=== PATIENT | female | born 1980 | race Caucasian/White ===

== ENCOUNTER 2020-12-18 18:26 | Emergency (ER) | payer OTHER ==
[~2020-12-18 18:26] MED LIST: MORPHINE SULFAT15 M1 PO; OMEPRAZOLE40 MG PO; ZOFRAN4 MG PO
== END 2020-12-18 21:46 | disposition left against medical advice (07) ==
LOC: ER1 18:26
DX: R10.10 Upper abdominal pain, unspecified (principal); Z53.21 Procedure and treatment not carried out due to patient leaving prior to being seen by health care provider

== ENCOUNTER 2021-01-07 07:02 | Emergency (ER) | payer OTHER ==
[2021-01-07 08:34] LABS: HEMOGLOBIN 14.6 gm/dl (12.3-15.3); RED BLOOD COUNT 4.77 M/UL (4.00-5.10); WHITE BLOOD COUNT 9.1 K/UL (4.5-11.0)
[2021-01-07 09:19] LABS: BUN/CREATININE RATIO 19 (0-10)
[2021-01-07] MEDS ORDERED: PROTONIX40 MG PO (10:34)
[2021-01-07] MEDS ORDERED: ZOFRAN4 MG PO (10:34)
== END 2021-01-07 11:23 | disposition home or self-care (01) ==
LOC: ER1 07:02
PROVIDERS: Physician Assistant
DX: R10.13 Epigastric pain (principal); R11.2 Nausea with vomiting, unspecified; I10 Essential (primary) hypertension; F17.210 Nicotine dependence, cigarettes, uncomplicated; Z88.0 Allergy status to penicillin; Z79.899 Other long term (current) drug therapy
CPT/HCPCS: 80053; 81001; 83690; 84703; 85025; 96374; 96375; 99284; C9113; J2405; J7030; Q9967

== ENCOUNTER 2021-06-20 23:11 | Emergency (ER) | payer SELFPAY ==
[~2021-06-20 23:11] MED LIST changes: +PROTONIX40 MG PO
[2021-06-21 00:20] LABS: HEMOGLOBIN 14.5 gm/dl (12.3-15.3); RED BLOOD COUNT 4.7 M/UL (4.00-5.10); WHITE BLOOD COUNT 11.5 K/UL (4.5-11.0)
[2021-06-21 00:42] LABS: BUN/CREATININE RATIO 30 (0-10)
[2021-06-21] MEDS ORDERED: ZOFRAN ODT 4 MG4 MG PO (01:19)
[2021-06-22] MEDS ORDERED: ZOFRAN4 MG PO ×2 (17:43→17:46)
[2021-06-22] MEDS ORDERED: MIRALAX 119 GR119 GM PO ×2 (17:46→21:01)
[2021-06-22] MEDS ORDERED: CARAFATE 1 GM TA1 GM PO (20:57)
[2021-06-22] MEDS ORDERED: ONDANSETRON ODT4 MG SL (21:01)
== END 2021-06-21 01:23 | disposition home or self-care (01) ==
LOC: ER1 23:11
PROVIDERS: Family Medicine
DX: E87.6 Hypokalemia (principal); R10.13 Epigastric pain; R11.2 Nausea with vomiting, unspecified; F17.200 Nicotine dependence, unspecified, uncomplicated; Z88.0 Allergy status to penicillin; Z79.899 Other long term (current) drug therapy
CPT/HCPCS: 80053; 83690; 83735; 85025; 96374; 96375; 99284; C9113; J2405; J7030

== ENCOUNTER 2021-06-24 16:28 | Emergency (ER) | payer OTHER ==
[~2021-06-24 16:28] MED LIST changes: +CARAFATE 1 GM TA1 GM PO; +MIRALAX 119 GR119 GM PO; +ONDANSETRON ODT4 MG SL; +ZOFRAN ODT 4 MG4 MG PO
== END 2021-06-24 19:15 | disposition left against medical advice (07) ==
LOC: ER1 16:28
DX: Z53.21 Procedure and treatment not carried out due to patient leaving prior to being seen by health care provider (principal)

== ENCOUNTER 2022-01-04 07:18 | Emergency (ER) | payer OTHER ==
[2022-01-04 08:18] LABS: HEMOGLOBIN 12.5 gm/dl (12.3-15.3); RED BLOOD COUNT 4.1 M/UL (4.00-5.10); WHITE BLOOD COUNT 5.9 K/UL (4.5-11.0)
[2022-01-04 08:40] LABS: BUN/CREATININE RATIO 29 (0-10)
[2022-01-04] MEDS ORDERED: ZOFRAN ODT 4 MG4 MG SL (10:16)
[2022-01-04] MEDS ORDERED: CARAFATE1 GM PO (10:16)
[2022-01-04] MEDS ORDERED: HYDROCODON-ACE1 EAC4 PO (10:16)
== END 2022-01-04 10:30 | disposition home or self-care (01) ==
LOC: ER1 07:18
PROVIDERS: Emergency Medicine
DX: R10.13 Epigastric pain (principal); R10.816 Epigastric abdominal tenderness; R00.0 Tachycardia, unspecified; Z88.1 Allergy status to other antibiotic agents; F17.200 Nicotine dependence, unspecified, uncomplicated
CPT/HCPCS: 71045; 80053; 82550; 82553; 83605; 83690; 84484; 84703; 85025; 93005; 96374; 96375; 96376; 99285; C9113; J2270; J2405

== ENCOUNTER 2022-01-13 07:29 | Emergency (ER) | payer OTHER ==
[~2022-01-13 07:29] MED LIST changes: +CARAFATE1 GM PO; +HYDROCODON-ACE1 EAC4 PO; +ZOFRAN ODT 4 MG4 MG SL
[2022-01-13 08:41] LABS: HEMOGLOBIN 11.9 gm/dl (12.3-15.3); RED BLOOD COUNT 3.98 M/UL (4.00-5.10); WHITE BLOOD COUNT 8.1 K/UL (4.5-11.0)
[2022-01-13 09:11] LABS: BUN/CREATININE RATIO 26 (0-10)
[2022-01-13] MEDS ORDERED: ACID CONTROLLER20 MG PO (10:52)
[2022-01-13] MEDS ORDERED: CARAFATE 1 GM TA1 GM GT (10:52)
[2022-01-13] MEDS ORDERED: OMEPRAZOLE40 MG PO (10:52)
== END 2022-01-13 12:00 | disposition home or self-care (01) ==
LOC: ER1 07:29
PROVIDERS: Physician Assistant
DX: K27.3 Acute peptic ulcer, site unspecified, without hemorrhage or perforation (principal); K27.7 Chronic peptic ulcer, site unspecified, without hemorrhage or perforation; I10 Essential (primary) hypertension; F17.210 Nicotine dependence, cigarettes, uncomplicated; Z88.0 Allergy status to penicillin
CPT/HCPCS: 80053; 81001; 82270; 82550; 82553; 83690; 84484; 84703; 85025; 93005; 96374; 99284; C9113

== ENCOUNTER 2022-03-08 11:38 | Inpatient (IN) | payer SELFPAY ==
[~2022-03-08] VITALS: Ht 165.1 cm; Wt 49.9 kg
[~2022-03-08 11:38] MED LIST changes: +ACID CONTROLLER20 MG PO; +CARAFATE 1 GM TA1 GM GT
[2022-03-08 12:09] LABS: HEMOGLOBIN 10.2 gm/dl (12.3-15.3); RED BLOOD COUNT 3.61 M/UL (4.00-5.10); WHITE BLOOD COUNT 7.5 K/UL (4.5-11.0)
[2022-03-08 12:50] LABS: BUN/CREATININE RATIO 15 (0-10)
[2022-03-08 15:20] LABS: CAMPYLOBACTER Not Detected (Negative); ENTEROAGGREGATIVE E.COLI (EAEC Not Detected (Negative); PLESIOMONAS SHIGELLOIDES Not Detected (Negative); SALMONELLA Not Detected (Negative); VIBRIO Not Detected (Negative); VIBRIO CHOLERAE Not Detected (Negative); YERSINIA ENTEROCOLITICA Not Detected (Negative)
[2022-03-08 15:21] LABS: ADENOVIRUS F 40/41 Not Detected (Negative); ASTROVIRUS Not Detected (Negative); CRYPTOSPORIDIUM Not Detected (Negative); E.COLI 0157 Not Detected (Negative); ENTAMOEBA HISTOLYTICA Not Detected (Negative); ENTEROTOXIGENIC E.COLI (ETEC) Not Detected (Negative); GIARDIA LAMBLIA Not Detected (Negative); NOROVIRUS GI/GII Not Detected (Negative); ROTOVIRUS A Not Detected (Negative); SAPOVIRUS Not Detected (Negative); SHIG/ENTEROINVAS.ECOLI (EIEC) Not Detected (Negative); SHIGA-LIK TOX.PRO.E.COLI (STEC Not Detected (Negative)
[2022-03-08 17:12] LABS: CLOSTRIDIUM DIFFICILE TOX A/B Not Detected (Negative); ENTEROPATHOGENIC E.COLI (EPEC) DETECTED (Negative)
[2022-03-08] MEDS ORDERED: COZAAR50 MG PO (17:12)
== END 2022-03-08 17:47 | disposition short-term general hospital (02) | DRG 308 ==
LOC: EDBD 11:38 → ER1 11:38 → EDBD 12:35 → CDU 12:35
PROVIDERS: Emergency Medicine; ADMIT Internal Medicine
PROC: 5A12012 Performance of Cardiac Output, Single, Manual (ICD-10-PCS; principal; 2022-03-08)
PROC: 3E043XZ Introduction of Vasopressor into Central Vein, Percutaneous Approach (ICD-10-PCS; 2022-03-08)
PROC: B24BZZZ Ultrasonography of Heart with Aorta (ICD-10-PCS; 2022-03-08)
PROC: 0BH17EZ Insertion of Endotracheal Airway into Trachea, Via Natural or Artificial Opening (ICD-10-PCS; 2022-03-08)
PROC: 5A1935Z Respiratory Ventilation, Less than 24 Consecutive Hours (ICD-10-PCS; 2022-03-08)
PROC: 03HY32Z Insertion of Monitoring Device into Upper Artery, Percutaneous Approach (ICD-10-PCS; 2022-03-08)
PROC: 4A133B1 Monitoring of Arterial Pressure, Peripheral, Percutaneous Approach (ICD-10-PCS; 2022-03-08)
PROC: 4A133J1 Monitoring of Arterial Pulse, Peripheral, Percutaneous Approach (ICD-10-PCS; 2022-03-08)
PROC: 02HV33Z Insertion of Infusion Device into Superior Vena Cava, Percutaneous Approach (ICD-10-PCS; 2022-03-08)
PROC: B548ZZA Ultrasonography of Superior Vena Cava, Guidance (ICD-10-PCS; 2022-03-08)
DX: I48.91 Unspecified atrial fibrillation (principal); E11.10 Type 2 diabetes mellitus with ketoacidosis without coma; A41.9 Sepsis, unspecified organism; K72.00 Acute and subacute hepatic failure without coma; Z20.822 Contact with and (suspected) exposure to COVID-19; K92.2 Gastrointestinal hemorrhage, unspecified; E87.2 Acidosis; G93.40 Encephalopathy, unspecified; F12.10 Cannabis abuse, uncomplicated; E87.6 Hypokalemia; I46.2 Cardiac arrest due to underlying cardiac condition; I10 Essential (primary) hypertension; F17.210 Nicotine dependence, cigarettes, uncomplicated; R74.01 Elevation of levels of liver transaminase levels; D64.9 Anemia, unspecified; I95.9 Hypotension, unspecified; E11.65 Type 2 diabetes mellitus with hyperglycemia; Z79.01 Long term (current) use of anticoagulants; Z87.11 Personal history of peptic ulcer disease; Z98.891 History of uterine scar from previous surgery; Z80.9 Family history of malignant neoplasm, unspecified
CPT/HCPCS: ECHO; 31500; 36556; 36600; 36680; 70450; 71045; 72125; 80053; 80307; 81001; 82009; 82272; 82550; 82553; 82803; 82962; 83036; 83605; 84484; 84703; 85025; 87040; 87086; 87507; 92950; 93306; 94002; 96374; 96375; 99285; C9113; G0480; J1720; J2370; J2543; J3370; J7030; J7070; P9045; P9047; Q9967